=== PATIENT | female | born 1960 | race Caucasian/White ===

== ENCOUNTER 2017-02-28 16:47 | Emergency (ER) | payer OTHER ==
[2017-02-28 16:47] VITALS: BMI 30.9
[2017-02-28 17:12] VITALS: BP 152/93; PULSE 88; RESP 20; TEMP 97.5; O2SAT 99
[2017-02-28] MEDS ORDERED: Simethicone 40 mg/0.6 ml Liquid (30 ml) PO STA (17:34)
--- NOTE | 2017-02-28 18:06 | ED PDOC ---
HPI: Abdomen Time Seen by Provider: 02/28/17 17:32 Chief Complaint (Nursing): Abdominal Pain Chief Complaint (Provider): abdominal pain History/Exam Limitations: no limitations Onset/Duration Of Symptoms: Days (7) Outside of [place] travel?: No Associated Symptoms: Chills, Loss Of Appetite. denies: Fever, Nausea, Vomiting , Diarrhea, Back Pain, Chest Pain, Constipation, Urinary Symptoms Additional Complaint(s): 56yo F in ED for eval of epigastric pain x 1 week worsened in past 3 days with associated chills and radiation to back without nausea vomiting fever chills. admits to hx of similar in past states zantac was working somewhat however now nothing make it feels better. pain unchanged with eating or leaning forward. Abnormal Vaginal Bleeding: No Past Medical History Reviewed: Historical Data, Nursing Documentation, Vital Signs Vital Signs: Last Vital Signs Temp 97.5 F L 02/28/17 17:10 Pulse 88 02/28/17 17:10 Resp 20 02/28/17 17:10 BP 152/93 H 02/28/17 17:10 Pulse Ox 99 02/28/17 19:20 - Medical History PMH: No Chronic Diseases - Family History Family History: States: Unknown Family Hx - Home Medications Home Medications: Ambulatory Orders Medication Instructions Recorded Naproxen [Naprosyn] 500 mg PO BID PRN #20 tablet 04/12/16 Famotidine [Pepcid] 20 mg PO BID #16 tab 02/28/17 Ibuprofen [Motrin] 400 mg PO Q6 #30 tab 02/28/17 - Allergies Allergies/Adverse Reactions: Allergies Allergy/AdvReac Type Severity Reaction Status Date / Time No Known Allergies Allergy Verified 04/12/16 11:07 Review of Systems ROS Statement: Except As Marked, All Systems Reviewed And Found Negative Gastrointestinal: Positive for: Abdominal Pain. Negative for: Nausea, Vomiting Physical Exam - Reviewed Nursing Documentation Reviewed: Yes Vital Signs Reviewed: Yes - Physical Exam Appears: Positive for: Well, Non-toxic, No Acute Distress Skin: Positive for: Normal Color, Warm, DRY Cardiovascular/Chest: Positive for: Regular Rate, Rhythm Respiratory: Positive for: CNT, Normal Breath Sounds Gastrointestinal/Abdominal: Positive for: Bowel Sounds, Soft, Tenderness (RUQ/ epigastric pain) Back: Positive for: Normal Inspection. Negative for: L CVA Tenderness, R CVA Tenderness Neurologic/Psych: Positive for: Alert, Oriented - Laboratory Results Result Diagrams: 02/28/17 17:50 02/28/17 17:50 - ECG O2 Sat by Pulse Oximetry: 99 - Progress ED Course And Treament: US of RUQ r/o gallstones, cbc/cmp/UA and simethecone Medical Decision Making Medical Decision Making: vrad: IMPRESSION: Findings compatible with a contracted gallbladder, filled with stones and sludge. No definite sonographic evidence of acute cholecystitis. Fatty infiltration of the liver. pt with mild elevated WBC, however no lipase and liver enzymes pt will need to have f.u with pmd/clinic for further eval given diet change instructions. Disposition - Clinical Impression Clinical Impression: Gallstones - Patient ED Disposition Is Patient to be Admitted: No Counseled Patient/Family Regarding: Studies Performed, Diagnosis, Need For Followup, Rx Given - Disposition Referrals: [facility] [Outside] [facility] [Outside] Disposition: Routine/Home Disposition Time: 20:19 Condition: STABLE Prescriptions: Famotidine [Pepcid] 20 mg PO BID #16 tab Ibuprofen [Motrin] 400 mg PO Q6 #30 tab Instructions: Gallstones (ED) Forms: [facility] ([place]) Print Language: THAI
[2017-02-28 18:10] LABS: BASO # 0.1 K/uL (0.0-0.2); BASO % 0.6 % (0.0-2.0); EOS # 0.3 K/uL (0.0-0.7); EOS % 2.4 % (0.0-4.0); HEMATOCRIT 40.1 % (34.0-47.0); LYMPH # 1.7 K/uL (1.0-4.3); LYMPH % 15.2 % (20.0-40.0); MEAN CELL VOLUME 86.2 fl (81.0-99.0); MEAN CORPUSCULAR HEMOGLOBIN 27.9 pg (27.0-31.0); MEAN CORPUSCULAR HGB CONC 32.4 g/dL (33.0-37.0); MEAN PLATELET VOLUME 9.1 fl (7.2-11.7); MONO % 8.9 % (0.0-10.0); NEUT # 8.4 K/uL (1.8-7.0); NEUT % 72.9 % (50.0-75.0); RED CELL DISTRIBUTION WIDTH 14.1 % (11.5-14.5); WHITE BLOOD COUNT 11.5 K/uL (4.8-10.8)
[2017-02-28 18:16] LABS: ALB/GLOB RATIO 1.3 (1.0-2.1); ALKALINE PHOSPHATASE 76 U/L (38-126); ALT/SGPT 36 U/L (9-52); AST/SGOT 19 U/L (14-36); BILIRUBIN,TOTAL 0.3 mg/dl (0.2-1.3); BLOOD UREA NITROGEN 12 mg/dl (7-17); CALCIUM 9.6 mg/dL (8.4-10.2); CARBON DIOXIDE 25 mmol/L (22-30); CHLORIDE 106 mmol/L (98-107); GFR AFRICAN-AMERICAN > 60; GLUCOSE,RANDOM 89 mg/dL (65-105); POTASSIUM 4.1 MMOL/L (3.6-5.0); SODIUM 141 mmol/l (132-148); TOTAL PROTEIN 7.3 G/DL (6.3-8.2)
[2017-02-28 18:30] LABS: RBC URINE 4 /hpf (0-3); URINE BACTERIA RARE (<OCC); URINE BILIRUBIN NEGATIVE (NEGATIVE); URINE BLOOD SMALL (NEGATIVE); URINE COLOR YELLOW (YELLOW); URINE GLUCOSE (UA) NEG (Normal); URINE KETONE NEGATIVE (NEGATIVE); URINE LEUKOCYTE ESTERASE TRACE Leu/uL (Negative); URINE PROTEIN NEGATIVE (NEGATIVE); URINE UROBILINOGEN 0.2-1.0 mg/dL (0.2-1.0); WBC URINE 3 /hpf (0-5)
--- NOTE | 2017-02-28 20:01 | US ---
EXAM: US Abdomen Limited, Right Upper Quadrant EXAM DATE/TIME: 02/28/2017 6:14 PM CLINICAL HISTORY: 56 years old, female; Pain; Abdominal pain; Additional info: Ruq/epigastric pain TECHNIQUE: Real-time ultrasound of the right upper quadrant with image documentation. COMPARISON: No relevant prior studies available. FINDINGS: Gallbladder: Wall/echo/shadow appearance of the gallbladder fossa, most compatible with multiple stones filling a contracted gallbladder. The shadowing does limit evaluation of the gallbladder. Gallbladder sludge is also noted. No significant gallbladder wall thickening noted. No evidence of pericholecystic fluid. Reportedly negative sonographic Segura's sign. Common bile duct: Does not appear abnormally dilated, measuring less than 6 mm in diameter. Liver: Demonstrates diffusely increased parenchymal echogenicity, most compatible with fatty infiltration. Otherwise within normal limits in appearance. Measures 12.4 cm in length. Normal flow seen in the main portal vein on color and Doppler imaging. Pancreas: Obscured by gas. Right kidney: Within normal limits in appearance. Measures 10.1 cm in length. No evidence of hydronephrosis. IMPRESSION: Findings compatible with a contracted gallbladder, filled with stones and sludge. No definite sonographic evidence of acute cholecystitis. Fatty infiltration of the liver. Otherwise negative exam. Pancreas is not seen, however. See above for remaining findings.
== END 2017-02-28 20:41 | disposition home or self-care (01) ==
LOC: H.ER 16:47
DX: K80.20 Calculus of gallbladder without cholecystitis without obstruction (principal); D72.829 Elevated white blood cell count, unspecified; K76.0 Fatty (change of) liver, not elsewhere classified
CPT/HCPCS: 76705; 80053; 81003; 83690; 85025; 96374; 99283; J1885

== ENCOUNTER 2017-03-02 12:10 | Observation (INO) | payer OTHER, SELFPAY ==
[2017-03-02 12:11] VITALS: BMI 30.9
[2017-03-02] MEDS ORDERED: Sodium Chloride 0.9% 500 ML IV ONE (13:02)
--- NOTE | 2017-03-02 13:05 | ED PDOC ---
HPI: Abdomen Time Seen by Provider: 03/02/17 12:23 Chief Complaint (Nursing): Abdominal Pain History Per: Patient History/Exam Limitations: no limitations Onset/Duration Of Symptoms: Gradual (4 days), Worse Since (thia am) Current Symptoms Are (Timing): Still Present Severity: Moderate Location Of Pain/Discomfort: RUQ (rads to back) Quality Of Discomfort: Sharp Associated Symptoms: denies: Fever, Chills, Nausea, Vomiting, Diarrhea, Back Pain, Chest Pain, Constipation, Urinary Symptoms Exacerbating Factors: None Alleviating Factors: None Last Bowel Movement: Yesterday Additional History Per: Patient Additional Complaint(s): c/o epigastric pain radiating across abd to back. Denies n/v/d. seen here two days ago had nml labs and us reveals gb stones. moderate sx this am after eating markedly improved now. Past Medical History Reviewed: Historical Data, Nursing Documentation, Vital Signs Vital Signs: Last Vital Signs Temp 97.3 F L 03/02/17 12:16 Pulse 84 03/02/17 12:16 Resp 20 03/02/17 12:16 BP 119/89 03/02/17 12:16 Pulse Ox 99 03/02/17 16:29 - Medical History PMH: Denies: Chronic Kidney Disease - Family History Family History: States: Unknown Family Hx - Living Arrangements Living Arrangements: With Family - Social History Current smoker - smoking cessation education provided: No - Home Medications Home Medications: Ambulatory Orders Medication Instructions Recorded Naproxen [Naprosyn] 500 mg PO BID PRN #20 tablet 04/12/16 Famotidine [Pepcid] 20 mg PO BID #16 tab 02/28/17 Ibuprofen [Motrin] 400 mg PO Q6 #30 tab 02/28/17 - Allergies Allergies/Adverse Reactions: Allergies Allergy/AdvReac Type Severity Reaction Status Date / Time No Known Allergies Allergy Verified 04/12/16 11:07 Review of Systems ROS Statement: Except As Marked, All Systems Reviewed And Found Negative Constitutional: Negative for: Fever, Chills Cardiovascular: Negative for: Chest Pain, Palpitations Respiratory: Negative for: Cough, Shortness of Breath Gastrointestinal: Positive for: Abdominal Pain. Negative for: Nausea, Vomiting , Diarrhea Musculoskeletal: Negative for: Neck Pain Neurological: Negative for: Weakness, Numbness Physical Exam - Reviewed Nursing Documentation Reviewed: Yes Vital Signs Reviewed: Yes - Physical Exam Appears: Positive for: Uncomfortable Head Exam: Positive for: ATRAUMATIC, NORMAL INSPECTION, NORMOCEPHALIC Eye Exam: Positive for: Normal appearance, EOMI, PERRL. Negative for: Nystagmus , Periorbital swelling, Periorbital tenderness Neck: Positive for: Normal, Painless ROM, Supple. Negative for: Decreased ROM, Limited ROM, Trachea Midline Cardiovascular/Chest: Positive for: Regular Rate, Rhythm. Negative for: Chest Non Tender, Edema, Gallop, Murmur, Bradycardia, Tachycardia Respiratory: Positive for: Normal Breath Sounds. Negative for: Decreased Breath Sounds, Accessory Muscle Use, Crackles, Rales, Rhonchi, Stridor, Wheezing , Respiratory Distress Gastrointestinal/Abdominal: Positive for: Normal Exam, Bowel Sounds, Soft. Negative for: Tenderness, Organomegaly, Mass, Distended, Guarding, Rebound, Hernia, Asicites Back: Positive for: Normal Inspection. Negative for: L CVA Tenderness, R CVA Tenderness, Vertebral Tenderness Extremity: Positive for: Normal ROM. Negative for: Tenderness, Pedal Edema, Calf Tenderness, Deformity, Swelling Neurologic/Psych: Positive for: Alert, director long term care II-XII, Oriented, Mood/Affect (calm) . Negative for: Motor/Sensory Deficits - Laboratory Results Result Diagrams: 03/02/17 13:34 03/02/17 13:34 - ECG ECG: Positive for: Interpreted By Sc ECG Rhythm: Positive for: Normal QRS, Normal ST Segment, Sinus Rhythm (76). Negative for: ST/T Changes Interpretation Of Abn EKG: no evidence of ischemia O2 Sat by Pulse Oximetry: 99 Pulse Ox Interpretation: Normal - Radiology X-Ray: Interpreted by Sc X-Ray Interpretation: No Acute Disease - Progress ED Course And Treament: GALLBLADDER: The gallbladder is distended and there are multiple gallstones. There is mild gallbladder wall thickening and positive sonographic Segura's sign. No pericholecystic fluid. COMMON BILE DUCT: Measures 3.2 mm. No stones. No dilatation. OTHER FINDINGS: None . IMPRESSION: Findings are most compatible with acute calculus cholecystitis. No biliary dilatation. pt repeat abd exam reveals tenderness in ruq will admit to FP consulted surgery. pt agree's with plan. Re-evaluation Time: 16:00 Condition: Unchanged Disposition - Clinical Impression Clinical Impression: Cholecystitis, acute with cholelithiasis - Patient ED Disposition Is Patient to be Admitted: Yes Counseled Patient/Family Regarding: Studies Performed, Diagnosis - Disposition Disposition Time: 16:00 Condition: STABLE Forms: [facility] ([place]) - Pt Status Changed To: Hospital Disposition Of: Inpatient - Admit Certification Admit to Inpatient:: After my assessment, the patient will require hospitalization for at least two midnights. This is because of the severity of symptoms shown, intensity of services needed, and/or the medical risk in this patient being treated as an outpatient. - POA Present On Arrival: None
[2017-03-02 13:48] LABS: BASO # 0.1 K/uL (0.0-0.2); BASO % 1.1 % (0.0-2.0); EOS # 0.3 K/uL (0.0-0.7); EOS % 3.3 % (0.0-4.0); HEMATOCRIT 40.9 % (34.0-47.0); LYMPH # 2.1 K/uL (1.0-4.3); LYMPH % 23.8 % (20.0-40.0); MEAN CELL VOLUME 85.5 fl (81.0-99.0); MEAN CORPUSCULAR HGB CONC 32.7 g/dL (33.0-37.0); MEAN PLATELET VOLUME 8.8 fl (7.2-11.7); MONO # 0.6 K/uL (0.0-0.8); MONO % 7.3 % (0.0-10.0); NEUT # 5.7 K/uL (1.8-7.0); NEUT % 64.5 % (50.0-75.0); RED CELL DISTRIBUTION WIDTH 14.3 % (11.5-14.5); WHITE BLOOD COUNT 8.9 K/uL (4.8-10.8)
--- NOTE | 2017-03-02 13:53 | RAD ---
PROCEDURE: CHEST RADIOGRAPH, 1 VIEW HISTORY: Abdominal pain COMPARISON: None available. FINDINGS: LUNGS: The lungs are well inflated and clear. PLEURA: No pneumothorax or pleural fluid seen. CARDIOVASCULAR: Normal. OSSEOUS STRUCTURES: No significant abnormalities. VISUALIZED UPPER ABDOMEN: Normal. OTHER FINDINGS: None. IMPRESSION: No active pulmonary disease.
[2017-03-02 14:03] LABS: ALB/GLOB RATIO 1.3 (1.0-2.1); ALKALINE PHOSPHATASE 86 U/L (38-126); ALT/SGPT 30 U/L (9-52); AMYLASE 71 U/L (30-110); AST/SGOT 22 U/L (14-36); BILIRUBIN,TOTAL 0.5 mg/dl (0.2-1.3); BLOOD UREA NITROGEN 14 mg/dl (7-17); CALCIUM 9.4 mg/dL (8.4-10.2); CARBON DIOXIDE 23 mmol/L (22-30); CHLORIDE 106 mmol/L (98-107); GFR AFRICAN-AMERICAN > 60; GLUCOSE,RANDOM 96 mg/dL (65-105); LIPASE 103 U/L (23-300); POTASSIUM 4.1 MMOL/L (3.6-5.0); SODIUM 140 mmol/l (132-148); TOTAL PROTEIN 7.8 G/DL (6.3-8.2)
--- NOTE | 2017-03-02 14:56 | CT ---
PROCEDURE: CT Abdomen and Pelvis without intravenous contrast HISTORY: Right flank pain COMPARISON: None. TECHNIQUE: CT scan of the abdomen and pelvis was performed without administration of intravenous contrast. Oral contrast was not administered. Coronal and sagittal reformatted images were obtained. Radiation dose: Total exam DLP = 761.84 MGy-cm. This CT exam was performed using one or more of the following dose reduction techniques: Automated exposure control, adjustment of the mA and/or kV according to patient size, and/or use of iterative reconstruction technique. FINDINGS: LOWER THORAX: There is subsegmental atelectasis in the lung bases. LIVER: The liver is normal in size. No gross lesion or ductal dilatation. GALLBLADDER AND BILE DUCTS: The gallbladder is well distended. No calcified gallstones. PANCREAS: The pancreas is normal in size. No gross lesion or ductal dilatation. SPLEEN: The spleen is normal in size. ADRENALS: Both adrenal glands are normal in size without discrete nodule. KIDNEYS AND URETERS: Both kidneys are normal in size without hydronephrosis or nephrolithiasis. There is a 11 mm simple cyst in the interpolar region of the left kidney. No ureteral dilatation. VASCULATURE: No aortic aneurysm. BOWEL: The small bowel loops are normal in caliber. There is mild sigmoid diverticulosis without CT evidence for acute diverticulitis. There is no bowel dilatation or obstruction. There is moderate amount of stool scattered throughout the colon APPENDIX: Normal appendix. PERITONEUM: No free fluid. No free air. LYMPH NODES: No enlarged lymph nodes. BLADDER: Unremarkable. REPRODUCTIVE: The uterus is normal in size. BONES: No acute fracture. Within normal limits for the patient's age. OTHER FINDINGS: None. IMPRESSION: No acute abdominal or pelvic abnormality. Specifically, no evidence of nephrolithiasis, obstructive uropathy or acute appendicitis. Constipation. No evidence of bowel obstruction.
--- NOTE | 2017-03-02 16:14 | US ---
HISTORY: ruq abd pain. COMPARISON: CT scan of the abdomen and pelvis performed the same day TECHNIQUE: Sonographic evaluation of the right upper quadrant of the abdomen. FINDINGS: GALLBLADDER: The gallbladder is distended and there are multiple gallstones. There is mild gallbladder wall thickening and positive sonographic Segura's sign. No pericholecystic fluid. COMMON BILE DUCT: Measures 3.2 mm. No stones. No dilatation. OTHER FINDINGS: None . IMPRESSION: Findings are most compatible with acute calculus cholecystitis. No biliary dilatation.
[2017-03-02] MEDS ORDERED: Ampicillin/Sulbactam 3 GM in Sodium Chloride 0.9% 100 ML IVPB STA (16:24)
[2017-03-02 16:41] LABS: RBC URINE 3 /hpf (0-3); URINE BILIRUBIN NEGATIVE (NEGATIVE); URINE BLOOD NEGATIVE (NEGATIVE); URINE COLOR YELLOW (YELLOW); URINE GLUCOSE (UA) NEG (Normal); URINE KETONE NEGATIVE (NEGATIVE); URINE LEUKOCYTE ESTERASE NEG Leu/uL (Negative); URINE PROTEIN 30 mg/dL (NEGATIVE); URINE UROBILINOGEN 0.2-1.0 mg/dL (0.2-1.0); WBC URINE 3 /hpf (0-5)
--- NOTE | 2017-03-02 17:10 | CP.PCM.HP ---
History of Present Illness - History of Present Illness History of Present Illness: This is a 56 y/o F with NO pertinent PMHx admitted for acute cholecystitis. Pt complains of epigastric and RUQ severe abdominal pain that began about 3-4 weeks ago, occurred every night, rapidly aggravated last week and became constant 8/10 intensity, constant and associated with chills. Pt denies fever, headache, CP, SOB, acid reflux, N/V or change in bowel movement. -Pt was at ER 2 days ago, where abdominal US showed a contracted gallbladder, filled with stones and sludge. No definite sonographic evidence of acute cholecystitis. Fatty infiltration of the liver. Pt was discharged with instructions to follow up at [facility] clinic. Pt unable to set up appointment due to holidays. NKDA. PMHx; denied. PSHx: ovarian cystectomy 30 years ago and uterine cauterization9 years ago. FHx: denied. 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 SHx: No tobacco, occasional EtOH and no recreational drugs. Today's ED Course: VS WNL. CBC and CMP unremarkable Urinalysis neg. Amylase 71, lipase 103 - WNL Troponin <0.012-low XR Chest w/ NO active pulmonary disease reported. Gallbladder US showed that findings are most compatible with acute calculus cholecystitis. No biliary dilatation. CT scan of abdomen/pelvis: No acute abdominal or pelvic abnormality. Ketorolac for pain. Ampicillin/Sulbactam initiated. Present on Admission - Present on Admission Any Indicators Present on Admission: No History of DVT/PE: No History of Uncontrolled Diabetes: No Urinary Catheter: No Decubitus Ulcer Present: No Review of Systems - Review of Systems Review of Systems: per HPI. - Constitutional Constitutional: As Per HPI Past Patient History - Infectious Disease Hx of Infectious Diseases: None - Past Medical History & Family History Past Medical History?: No Past Family History: Reviewed and not pertinent - Past Social History Smoking Status: Never Smoked - CARDIAC Hx Cardiac Disorders: No - PULMONARY Hx Respiratory Disorders: No - NEUROLOGICAL Hx Neurological Disorder: No - HEENT Hx HEENT Problems: No - RENAL Hx Chronic Kidney Disease: No - ENDOCRINE/METABOLIC Hx Endocrine Disorders: No - HEMATOLOGICAL/ONCOLOGICAL Hx Blood Disorders: No - INTEGUMENTARY Hx Dermatological Problems: No - MUSCULOSKELETAL/RHEUMATOLOGICAL Hx Musculoskeletal Disorders: No - GASTROINTESTINAL Hx Gastrointestinal Disorders: No - GENITOURINARY/GYNECOLOGICAL Hx Genitourinary Disorders: No - PSYCHIATRIC Hx Psychophysiologic Disorder: No Hx Substance Use: No - SURGICAL HISTORY Hx Surgeries: Yes Other/Comment: ovarian cyst removed - ANESTHESIA Hx Anesthesia: Yes Hx Anesthesia Reactions: No Meds Allergies/Adverse Reactions: Allergies Allergy/AdvReac Type Severity Reaction Status Date / Time No Known Allergies Allergy Verified 04/12/16 11:07 Physical Exam - Constitutional Appears: Well, No Acute Distress - Eye Exam Eye Exam: EOMI, Normal appearance, PERRL - ENT Exam ENT Exam: Mucous Membranes Moist - Neck Exam Neck exam: Positive for: Full Rom - Respiratory Exam Respiratory Exam: Clear to Auscultation Bilateral, NORMAL BREATHING PATTERN - Cardiovascular Exam Cardiovascular Exam: REGULAR RHYTHM, +S1, +S2 - GI/Abdominal Exam GI & Abdominal Exam: Soft, Tenderness. absent: Distended, Guarding, Mass Additional comments: tenderness on epigastric and RUQ areas. Results - Vital Signs Recent Vital Signs: Last Vital Signs Temp 97.3 F L 03/02/17 12:16 Pulse 84 03/02/17 12:16 Resp 20 03/02/17 12:16 BP 119/89 03/02/17 12:16 Pulse Ox 99 03/02/17 16:41 - Labs Result Diagrams: 03/02/17 13:34 03/02/17 13:34 Assessment & Plan - Assessment and Plan (Free Text) Assessment: 56 y/o F with no pertinent PMHx admitted for acute cholecystitis. Plan: 1. Acute Cholecystitis - CBC, CMP - Type and Screen - PT and PTT - Dextrose 5% IV at 126 ml/hr - Morphine 2mg IVP Q4H for moderate pain - Morphine 4mg IVP Q6H for severe pain - Venlafaxine 150 mg PO daily - Pantoprazole 40 mg PO - Zofran 4 mg IVP PRN - NPO - HIDA scan ordered for tomorrow morning. - Surgery on board. -f/u HIDA and blood analysis results. 2. DVT prophylaxis. - SCD for now. - Date & Time Date: 03/02/17 Time: 05:00
--- NOTE | 2017-03-02 17:39 | CP.PCM.CON ---
History of Present Illness - History of Present Illness History of Present Illness: General Surgery- Dr. Ballard 56F with RUQ w/ first episode one year ago. pain has been intermittent and most recently a dull achy gas pain that was at it's worst one week ago. Nothing made the symptoms worse, while in the ED receiving medication pt just started feeling better. Recently pt has been experiencing episodes of gastroesophageal reflux with no episodes of vomiting. There has been a slight change in bowel movements with increased straining. Currently denies F/C CP/SOB V/D numbness or tingling in the extremities. FDLMP: 2 years ago PMH: none PSH: Ovarian cyst removal, abdominoplasty (less than 1 year ago) ALL: none SocialHx: Denies tobacco/illicit drug use; social ETOH Review of Systems - Review of Systems All systems: reviewed and no additional remarkable complaints except Past Patient History - Infectious Disease Hx of Infectious Diseases: None - Past Social History Smoking Status: Never Smoked - CARDIAC Hx Cardiac Disorders: No - PULMONARY Hx Respiratory Disorders: No - NEUROLOGICAL Hx Neurological Disorder: No - HEENT Hx HEENT Problems: No - RENAL Hx Chronic Kidney Disease: No - ENDOCRINE/METABOLIC Hx Endocrine Disorders: No - HEMATOLOGICAL/ONCOLOGICAL Hx Blood Disorders: No - INTEGUMENTARY Hx Dermatological Problems: No - MUSCULOSKELETAL/RHEUMATOLOGICAL Hx Musculoskeletal Disorders: No - GASTROINTESTINAL Hx Gastrointestinal Disorders: No - GENITOURINARY/GYNECOLOGICAL Hx Genitourinary Disorders: No - PSYCHIATRIC Hx Psychophysiologic Disorder: No Hx Substance Use: No - SURGICAL HISTORY Hx Surgeries: Yes Other/Comment: ovarian cyst removed - ANESTHESIA Hx Anesthesia: Yes Hx Anesthesia Reactions: No Meds Allergies/Adverse Reactions: Allergies Allergy/AdvReac Type Severity Reaction Status Date / Time No Known Allergies Allergy Verified 04/12/16 11:07 - Medications Medications: Current Medications Dextrose/Sodium Chloride (Dextrose 5%/0.45% Ns 1000 Ml) 1,000 mls @ 126 mls/hr IV .Q7H57M [facility] Stop: 03/03/17 17:01 Ketorolac Tromethamine (Toradol) 30 mg IVP Q6 PRN PRN Reason: Pain, Mild (1-3) Morphine Sulfate (Morphine) 4 mg IVP Q6 PRN PRN Reason: Pain, severe (8-10) Morphine Sulfate (Morphine) 2 mg IVP Q4 PRN PRN Reason: Pain, moderate (4-7) Pantoprazole Sodium (Protonix Inj) 40 mg IVP HS JODY Venlafaxine HCl (Effexor Xr) 150 mg PO DAILY JODY Physical Exam - Constitutional Appears: Non-toxic, No Acute Distress - Head Exam Head Exam: ATRAUMATIC - Eye Exam Eye Exam: EOMI - ENT Exam ENT Exam: Mucous Membranes Moist - Respiratory Exam Respiratory Exam: NORMAL BREATHING PATTERN. absent: Accessory Muscle Use, Rales , Rhonchi - Cardiovascular Exam Cardiovascular Exam: +S1, +S2 - GI/Abdominal Exam GI & Abdominal Exam: Normal Bowel Sounds, Soft. absent: Distended, Firm, Guarding, Hernia, Tenderness Additional comments: no tenderness to palpation during exam. abdominoplasty scar noted. incision c/d/ i no signs of maseration of eviseration - Extremities Exam Additional comments: +2 pulses LE B/L - Back Exam Back exam: absent: CVA tenderness (L), CVA tenderness (R) - Neurological Exam Neurological exam: Alert, Oriented x3 - Skin Skin Exam: Intact, Normal Color, Warm Results - Vital Signs Recent Vital Signs: Last Vital Signs Temp 97.3 F L 03/02/17 12:16 Pulse 84 03/02/17 12:16 Resp 20 03/02/17 12:16 BP 119/89 03/02/17 12:16 Pulse Ox 99 03/02/17 16:41 - Labs Result Diagrams: 03/02/17 13:34 03/02/17 13:34 Assessment & Plan - Assessment and Plan (Free Text) Assessment: 56F w/ RUQ abd pain Plan: - f/u HIDA scan - IVF/Abx - GI/DVTppx - pain control - AM Labs - NPO - further recs per Dr. Nellie Patel PGY1
[2017-03-02] MEDS: Dextrose 5%/0.45% NS 1,000 ML IV SCH (18:57)
[2017-03-03 00:44] VITALS: TEMP 98.3
[2017-03-03] MEDS: Dextrose 5%/0.45% NS 1,000 ML IV SCH ×2 (02:35→10:52)
[2017-03-03 07:25] LABS: HEMATOCRIT 36.5 % (34.0-47.0); MEAN CELL VOLUME 85.6 fl (81.0-99.0); MEAN CORPUSCULAR HEMOGLOBIN 28.2 pg (27.0-31.0); WHITE BLOOD COUNT 8.2 K/uL (4.8-10.8)
--- NOTE | 2017-03-03 07:35 | CP.PCM.PN ---
Subjective - Date & Time of Evaluation Date of Evaluation: 03/03/17 Time of Evaluation: 06:45 - Subjective Subjective: General Surgery progress note for Dr. Ballard Patient seen and examined at bedside this AM. ARLENEEO. Patient reports headache but denies any abdominal pain, fevers, nausea, or vomiting. Objective - Vital Signs/Intake and Output Vital Signs (last 24 hours): Temp Pulse Resp BP Pulse Ox 98.3 F 78 20 112/67 96 03/03/17 00:43 03/03/17 00:43 03/03/17 00:43 03/03/17 00:43 03/03/17 00:43 - Medications Medications: Current Medications Dextrose/Sodium Chloride (Dextrose 5%/0.45% Ns 1000 Ml) 1,000 mls @ 126 mls/hr IV .Q7H57M [facility] Stop: 03/03/17 17:01 Last Admin: 03/03/17 02:35 Dose: 126 mls/hr Ketorolac Tromethamine (Toradol) 30 mg IVP Q6 PRN PRN Reason: Pain, Mild (1-3) Last Admin: 03/02/17 19:59 Dose: 30 mg Morphine Sulfate (Morphine) 4 mg IVP Q6 PRN PRN Reason: Pain, severe (8-10) Morphine Sulfate (Morphine) 2 mg IVP Q4 PRN PRN Reason: Pain, moderate (4-7) Last Admin: 03/02/17 21:17 Dose: 2 mg Ondansetron HCl (Zofran Inj) 4 mg IVP Q4 PRN PRN Reason: Nausea/Vomiting Last Admin: 03/02/17 21:15 Dose: 4 mg Pantoprazole Sodium (Protonix Inj) 40 mg IVP HS [facility] Last Admin: 03/02/17 22:03 Dose: 40 mg Venlafaxine HCl (Effexor Xr) 150 mg PO DAILY JODY - Labs Labs: 03/03/17 06:50 - Constitutional Appears: Non-toxic, No Acute Distress - Head Exam Head Exam: ATRAUMATIC, NORMOCEPHALIC - Eye Exam Eye Exam: Normal appearance. absent: Conjunctival injection, Scleral icterus - ENT Exam ENT Exam: Mucous Membranes Moist, Normal Oropharynx - Respiratory Exam Respiratory Exam: NORMAL BREATHING PATTERN. absent: Accessory Muscle Use, Respiratory Distress - GI/Abdominal Exam GI & Abdominal Exam: Soft. absent: Distended, Tenderness Additional comments: negative goldstein's - Extremities Exam Extremities Exam: Normal Capillary Refill. absent: Calf Tenderness, Pedal Edema , Tenderness - Neurological Exam Neurological Exam: Alert, Awake, Oriented x3 - Psychiatric Exam Psychiatric exam: Normal Affect, Normal Mood - Skin Skin Exam: Dry, Intact, Normal Color, Warm Assessment and Plan - Assessment and Plan (Free Text) Assessment: 56F with RUQ pain and cholelithiasis LFT's wnl no leukocytosis Plan: -follow up HIDA scan today -Continue pain medication and nausea medication PRN -NPO -IVF Discussed with Dr. Nellie Mishra, PGY2
[2017-03-03 07:37] LABS: ALB/GLOB RATIO 1.2 (1.0-2.1); ALKALINE PHOSPHATASE 68 U/L (38-126); ALT/SGPT 27 U/L (9-52); AST/SGOT 18 U/L (14-36); BILIRUBIN,TOTAL 0.4 mg/dl (0.2-1.3); BLOOD UREA NITROGEN 11 mg/dl (7-17); CALCIUM 8.9 mg/dL (8.4-10.2); CARBON DIOXIDE 23 mmol/L (22-30); CHLORIDE 107 mmol/L (98-107); GFR AFRICAN-AMERICAN > 60; GLUCOSE,RANDOM 127 mg/dL (65-105); POTASSIUM 3.9 MMOL/L (3.6-5.0); SODIUM 140 mmol/l (132-148); TOTAL PROTEIN 6.5 G/DL (6.3-8.2)
[2017-03-03] MEDS: Venlafaxine 150 mg ER Cap PO SCH ×2 (09:25→12:51)
[2017-03-03 09:46] LABS: PARTIAL THROMBOPLASTIN TIME 30.2 Seconds (25.6-37.1)
--- NOTE | 2017-03-03 10:06 | CP.PCM.PN ---
Subjective - Date & Time of Evaluation Date of Evaluation: 03/03/17 Time of Evaluation: 08:30 - Subjective Subjective: 56 y/o F admitted due to cholecystitis, evaluated at bedside. Pt reports feeling well. Abdominal pain is controlled with provided medications. Pt is NPO , urinating and ambulating with NO difficulties. Pt denies headache, fever, CP, SOB, N/V/D or dysuria. Objective - Vital Signs/Intake and Output Vital Signs (last 24 hours): Temp Pulse Resp BP Pulse Ox 98.3 F 78 20 112/67 96 03/03/17 00:43 03/03/17 00:43 03/03/17 00:43 03/03/17 00:43 03/03/17 00:43 - Medications Medications: Current Medications Dextrose/Sodium Chloride (Dextrose 5%/0.45% Ns 1000 Ml) 1,000 mls @ 126 mls/hr IV .Q7H57M [facility] Stop: 03/03/17 17:01 Last Admin: 03/03/17 02:35 Dose: 126 mls/hr Ketorolac Tromethamine (Toradol) 30 mg IVP Q6 PRN PRN Reason: Pain, Mild (1-3) Last Admin: 03/02/17 19:59 Dose: 30 mg Morphine Sulfate (Morphine) 4 mg IVP Q6 PRN PRN Reason: Pain, severe (8-10) Morphine Sulfate (Morphine) 2 mg IVP Q4 PRN PRN Reason: Pain, moderate (4-7) Last Admin: 03/02/17 21:17 Dose: 2 mg Ondansetron HCl (Zofran Inj) 4 mg IVP Q4 PRN PRN Reason: Nausea/Vomiting Last Admin: 03/02/17 21:15 Dose: 4 mg Pantoprazole Sodium (Protonix Inj) 40 mg IVP HS [facility] Last Admin: 03/02/17 22:03 Dose: 40 mg Venlafaxine HCl (Effexor Xr) 150 mg PO DAILY [facility] Last Admin: 03/03/17 09:25 Dose: Not Given - Labs Labs: 03/03/17 06:50 03/03/17 06:50 PT 11.9 Seconds (9.8-13.1) 03/03/17 06:50 INR 1.2 (0.9-1.2) 03/03/17 06:50 APTT 30.2 Seconds (25.6-37.1) 03/03/17 06:50 - Constitutional Appears: Well, No Acute Distress - Eye Exam Eye Exam: EOMI, Normal appearance, PERRL - ENT Exam ENT Exam: Mucous Membranes Moist - Neck Exam Neck Exam: Full ROM - Respiratory Exam Respiratory Exam: Clear to Ausculation Bilateral, NORMAL BREATHING PATTERN - Cardiovascular Exam Cardiovascular Exam: REGULAR RHYTHM, +S1, +S2 Assessment and Plan - Assessment and Plan (Free Text) Plan: 56 y/o F with no pertinent PMHx admitted for acute cholecystitis. 1. Acute Cholecystitis - CBC, CMP - WNL - Type and Screen - PT and PTT - WNL - Dextrose 5% IV at 126 ml/hr - Morphine 2mg IVP Q4H for moderate pain - Morphine 4mg IVP Q6H for severe pain - Venlafaxine 150 mg PO daily - Pantoprazole 40 mg PO - Zofran 4 mg IVP PRN - NPO - Surgery on board. - f/u HIDA and blood analysis results. 2. DVT prophylaxis. - SCD. - Lovenox ordered.
[2017-03-03 11:10] VITALS: RESP 18
[2017-03-03] MEDS ORDERED: Enoxaparin 40 mg Syringe SC ONE (12:40)
--- NOTE | 2017-03-03 15:15 | NM ---
PROCEDURE: Nuclear Medicine Hepatobiliary Scan HISTORY: RUQ pain, cholelithiasis COMPARISON: March 03, 2017. Abdominal ultrasound. TECHNIQUE: 6.2 mCi of technetium 99m Mebrofenin was administered intravenously. Planar images of the abdomen were obtained at 5 min intervals to 60 mins. Delayed images were also obtained. FINDINGS: LIVER: Timely and homogenous uptake. COMMON BILE DUCT: identified at 10 mins. GALLBLADDER: identified at 10 mins. SMALL BOWEL: Identified at 180 mins. IMPRESSION: Negative study for acute cholecystitis, patent cystic duct.
[2017-03-03 16:19] VITALS: BP 133/74; PULSE 73; O2SAT 97
--- NOTE | 2017-03-03 18:20 | CP.PCM.DIS ---
Provider - Provider Date of Admission: 03/02/17 16:30 Attending physician: Margie Beach MD Primary care physician: [facility]. Consults: General Surgery: Dr Ballard Time Spent in preparation of Discharge (in minutes): 30 Hospital Course - Lab Results Lab Results: Most Recent Lab Values WBC 8.2 K/uL (4.8-10.8) 03/03/17 06:50 RBC 4.27 Mil/uL (3.80-5.20) 03/03/17 06:50 Hgb 12.1 g/dL (12.0-16.0) 03/03/17 06:50 Hct 36.5 % (34.0-47.0) 03/03/17 06:50 MCV 85.6 fl (81.0-99.0) 03/03/17 06:50 MCH 28.2 pg (27.0-31.0) 03/03/17 06:50 MCHC 33.0 g/dL (33.0-37.0) 03/03/17 06:50 RDW 14.0 % (11.5-14.5) 03/03/17 06:50 Plt Count 225 K/uL (130-400) 03/03/17 06:50 MPV 8.8 fl (7.2-11.7) 03/02/17 13:34 Neut % (Auto) 64.5 % (50.0-75.0) 03/02/17 13:34 Lymph % (Auto) 23.8 % (20.0-40.0) 03/02/17 13:34 [place] % (Auto) 7.3 % (0.0-10.0) 03/02/17 13:34 Eos % (Auto) 3.3 % (0.0-4.0) 03/02/17 13:34 Baso % (Auto) 1.1 % (0.0-2.0) 03/02/17 13:34 Neut # 5.7 K/uL (1.8-7.0) 03/02/17 13:34 Lymph # 2.1 K/uL (1.0-4.3) 03/02/17 13:34 [place] # 0.6 K/uL (0.0-0.8) 03/02/17 13:34 Eos # 0.3 K/uL (0.0-0.7) 03/02/17 13:34 Baso # 0.1 K/uL (0.0-0.2) 03/02/17 13:34 PT 11.9 Seconds (9.8-13.1) 03/03/17 06:50 INR 1.2 (0.9-1.2) 03/03/17 06:50 APTT 30.2 Seconds (25.6-37.1) 03/03/17 06:50 Sodium 140 mmol/l (132-148) 03/03/17 06:50 Potassium 3.9 MMOL/L (3.6-5.0) 03/03/17 06:50 Chloride 107 mmol/L (98-107) 03/03/17 06:50 Carbon Dioxide 23 mmol/L (22-30) 03/03/17 06:50 Anion Gap 13 (10-20) 03/03/17 06:50 BUN 11 mg/dl (7-17) 03/03/17 06:50 Creatinine 0.6 mg/dL (0.7-1.2) L 03/03/17 06:50 Est GFR ( Amer) > 60 03/03/17 06:50 Est GFR (Non-Af Amer) > 60 03/03/17 06:50 Random Glucose 127 mg/dL (65-105) H 03/03/17 06:50 Calcium 8.9 mg/dL (8.4-10.2) 03/03/17 06:50 Total Bilirubin 0.4 mg/dl (0.2-1.3) 03/03/17 06:50 AST 18 U/L (14-36) 03/03/17 06:50 ALT 27 U/L (9-52) 03/03/17 06:50 Alkaline Phosphatase 68 U/L (38-126) 03/03/17 06:50 Troponin I < 0.0120 ng/mL (0.00-0.120) 03/02/17 13:34 Total Protein 6.5 G/DL (6.3-8.2) 03/03/17 06:50 Albumin 3.6 g/dL (3.5-5.0) 03/03/17 06:50 Globulin 2.9 gm/dL (2.2-3.9) 03/03/17 06:50 Albumin/Globulin Ratio 1.2 (1.0-2.1) 03/03/17 06:50 Amylase 71 U/L (30-110) 03/02/17 13:34 Lipase 103 U/L (23-300) 03/02/17 13:34 Urine Color Yellow (YELLOW) 03/02/17 15:50 Urine Clarity Slighty-cloudy (Clear) 03/02/17 15:50 Urine pH 7.0 (5.0-8.0) 03/02/17 15:50 Ur Specific [place] 1.020 (1.003-1.030) 03/02/17 15:50 Urine Protein 30 mg/dL (NEGATIVE) 03/02/17 15:50 Urine Glucose (UA) Neg mg/dL (Normal) 03/02/17 15:50 Urine Ketones Negative mg/dL (NEGATIVE) 03/02/17 15:50 Urine Blood Negative (NEGATIVE) 03/02/17 15:50 Urine Nitrate Negative (NEGATIVE) 03/02/17 15:50 Urine Bilirubin Negative (NEGATIVE) 03/02/17 15:50 Urine Urobilinogen 0.2-1.0 mg/dL (0.2-1.0) 03/02/17 15:50 Ur Leukocyte Esterase Neg [place]/uL (Negative) 03/02/17 15:50 Urine RBC (Auto) 3 /hpf (0-3) 03/02/17 15:50 Urine Microscopic WBC 3 /hpf (0-5) 03/02/17 15:50 Ur Squamous Epith Cells 7 /hpf (0-5) H 03/02/17 15:50 Blood Type O POSITIVE 03/02/17 17:40 Antibody Screen Negative 03/02/17 17:40 BBK History Checked No verified bt 03/02/17 17:40 - Hospital Course Hospital Course: 56 y/o F admitted for acute cholecystitis. Pt was complaining of severe abdominal pain that began 3 weeks ago. Pain was managed with morphine. At hospital: -No fever, CBC unremarkable. -XR Chest w/ NO active pulmonary disease reported. -Gallbladder US showed that findings are most compatible with acute calculus cholecystitis. No biliary dilatation. -CT scan of abdomen/pelvis: No acute abdominal or pelvic abnormality. -HIDA test was negative for acute cholecystitis. Pt discharged home as per surgery, stable with NO pain and tolerating PO. Pt instructed to follow up with PMD within 1 week. - Date & Time of H&P Date of H&P: 03/02/17 Time of H&P: 17:10 Discharge Exam - Head Exam Head Exam: ATRAUMATIC, NORMOCEPHALIC - Eye Exam Eye Exam: Normal appearance, PERRL - ENT Exam ENT Exam: Mucous Membranes Moist - Neck Exam Neck exam: Full Rom - Respiratory Exam Respiratory Exam: Clear to PA & Lateral, NORMAL BREATHING PATTERN - Cardiovascular Exam Cardiovascular Exam: REGULAR RHYTHM, +S1, +S2 - GI/Abdominal Exam GI & Abdominal Exam: Normal Bowel Sounds, Unremarkable Discharge Plan - Follow Up Plan Condition: STABLE Disposition: HOME/ ROUTINE Instructions: Cholecystitis (DC), Cholecystitis (GEN) Additional Instructions: f/u with PMD within 1 week of hospital discharge for management of medical problems and follow up of cholecystitis f/u with Surgical Clinic at earliest availability for management of cholecystitis Return to ED if fever/chills, severe abdominal pain, or intractable vomiting occurs Avoid diet high in fats or large meals
== END 2017-03-03 18:17 | disposition home or self-care (01) ==
LOC: H.ER 12:10 → INTOOBSV 16:30 → H.ERHOLD 16:30 → H.MEDSURG1 18:34
PROVIDERS: ADMIT Family Medicine Geriatric Medicine; ATTEND Family Medicine Geriatric Medicine
DX: K80.00 Calculus of gallbladder with acute cholecystitis without obstruction (principal)
CPT/HCPCS: 36415; 71010; 74176; 76705; 78227; 80053; 81003; 81025; 82150; 83690; 84484; 85025; 85027; 85610; 85730; 86850; 86900; 96374; 96375; 99284; A9537; C9113; G0378; J0295; J1885; J2270; J2405; J7040; J7042

== ENCOUNTER 2017-04-01 11:40 | Day surgery (SDC) | payer SELFPAY ==
[2017-04-01 12:07] VITALS: BMI 27.4
[2017-04-01 12:13] VITALS: RESP 18
[2017-04-01] MEDS ORDERED: Propofol 10 mg/ml Inj (20 ML) ONE (12:17)
[2017-04-01] MEDS ORDERED: Lidocaine 4% (Laryng-O-Jet) Kit MM ONE (12:18)
[2017-04-01] MEDS ORDERED: Rocuronium 10 mg/ml (5 ml) ONE (12:18)
[2017-04-01] MEDS ORDERED: Succinylcholine 200 mg/10 ml Inj IV ONE (12:18)
[2017-04-01] MEDS ORDERED: Lidocaine 1% 5ml Abboject IV ONE (12:18)
[2017-04-01] MEDS ORDERED: Midazolam 2 MG/2 ML VIAL ONE (12:18)
[2017-04-01] MEDS ORDERED: Neostigmine Methylsulfate 2 MG/2 ML ML IV ONE (12:18)
[2017-04-01] MEDS ORDERED: Lactated Ringer's 1,000 ML IV ONE (12:21)
[2017-04-01] MEDS ORDERED: Lidocaine 1% Inj (20ml) ONE (12:50)
[2017-04-01] MEDS ORDERED: Bupivacaine 0.5% Inj(30mL) ONE (12:50)
[2017-04-01] MEDS ORDERED: Lactated Ringer's 1,000 ML IV SCH (15:15)
[2017-04-01] MEDS ORDERED: Oxycodone/Acetaminophen 5/325 mg Tab PO PRN (15:16)
[2017-04-01] MEDS: HYDROmorphone 0.5 mg/0.5 ml ISec IVP PRN ×2 (15:18→15:35)
[2017-04-01 18:24] VITALS: BP 120/72; PULSE 91; TEMP 97.5; O2SAT 96
[2017-04-02] MEDS ORDERED: Venlafaxine 150 mg ER Cap PO SCH (09:00)
== END 2017-04-01 18:30 | disposition home or self-care (01) ==
LOC: H.OPSURG 11:40
PROVIDERS: ATTEND Specialist
DX: K80.20 Calculus of gallbladder without cholecystitis without obstruction (principal); F41.9 Anxiety disorder, unspecified; G40.909 Epilepsy, unspecified, not intractable, without status epilepticus; F41.0 Panic disorder [episodic paroxysmal anxiety]
CPT/HCPCS: 47562; 88304; J0330; J0690; J1170; J1885; J2250; J2704; J2710; J2765; J3010; J7120

== ENCOUNTER 2017-08-31 10:19 | Day surgery (SDC) | payer SELFPAY ==
[2017-08-31] MEDS ORDERED: Lactated Ringer's 1,000 ML IV ONE (10:39)
[2017-08-31] MEDS ORDERED: Lidocaine PF 2% (5 ml) Inj (For Cardiac Arrhy) IV ONE (11:40)
[2017-08-31] MEDS ORDERED: Propofol 10 mg/ml Inj (20 ML) ONE (11:40)
[2017-08-31 12:17] VITALS: TEMP 97
[2017-08-31 12:37] VITALS: BP 113/71; PULSE 72; RESP 6; O2SAT 99
== END 2017-08-31 13:08 | disposition home or self-care (01) ==
LOC: H.ENDO 10:19
PROVIDERS: ATTEND Internal Medicine Gastroenterology
DX: Z12.11 Encounter for screening for malignant neoplasm of colon (principal); D12.5 Benign neoplasm of sigmoid colon; K64.8 Other hemorrhoids
CPT/HCPCS: 45380; 88305; J2704; J7120